=== PATIENT | female | born 1965 | race Caucasian/White ===

== ENCOUNTER 2021-11-20 14:22 | Inpatient (IN) | payer BC ==
[2021-11-20] MEDS ORDERED: METOCLOPRAMIDE 5 MG/ML 2 ML VIAL IVP STA (14:47)
[2021-11-20] MEDS ORDERED: SODIUM CHLORIDE 0.9% 2,000 ML IV STA (14:47)
[2021-11-20] MEDS ORDERED: KETOROLAC 15 MG/ML 1 ML VIAL IVP STA (14:47)
[2021-11-20] MEDS ORDERED: diphenhydrAMINE 50 MG/ML 1 ML VIAL IVP STA (14:47)
[2021-11-20 15:32] LABS: ALT 23 U/L (4-34); AST 30 U/L (14-36); African American GFR (CKD) >90 (>60 ml/min/1.73 sqM); Albumin 5.1 g/dL (3.5-5.0); Alkaline Phosphatase 105 U/L (38-126); Amylase 102 U/L (30-110); Anion Gap 11 mmol/L; Blood Urea Nitrogen 18 mg/dL (7-17); Calcium 10.5 mg/dL (8.4-10.2); Carbon Dioxide 23 mmol/L (22-30); Chloride 100 mmol/L (98-107); Glucose 119 mg/dL (74-99); Lipase 286 U/L (23-300); Non-African American GFR(CKD) 86 (>60 ml/min/1.73 sqM); Potassium 4.1 mmol/L (3.5-5.1); Sodium 134 mmol/L (137-145); Total Bilirubin 1.1 mg/dL (0.2-1.3); Total Protein 8.7 g/dL (6.3-8.2)
[2021-11-20 15:42] LABS: Basophils % (A) 0 %; Eosinophils # (A) 0.1 k/uL (0-0.7); Eosinophils % (A) 0 %; HCT 43.8 % (34.0-46.0); HGB 14.4 gm/dL (11.4-16.0); Lymphocytes # (A) 1.2 k/uL (1.0-4.8); Lymphocytes % (A) 11 %; MCH 29.6 pg (25.0-35.0); MCHC 32.8 g/dL (31.0-37.0); MCV 90.1 fL (80.0-100.0); Mean Platelet Volume 7.9; Monocytes # (A) 0.6 k/uL (0-1.0); Monocytes % (A) 6 %; Neutrophils # (A) 8.6 k/uL (1.3-7.7); Neutrophils % (A) 81 %; Platelet Count 430 k/uL (150-450); RBC 4.86 m/uL (3.80-5.40); RDW 14.1 % (11.5-15.5); WBC 10.6 k/uL (3.8-10.6)
[2021-11-20] MEDS ORDERED: HYDROmorphone 0.5 MG/0.5 ML SYRINGE IVP STA (16:03)
--- NOTE | 2021-11-20 16:04 | CT ---
EXAMINATION TYPE: CT abdomen pelvis w con DATE OF EXAM: 11/20/2021 COMPARISON: None available HISTORY: abdominal pain, distention CT DLP: 828.2 mGycm Automated exposure control for dose reduction was used. TECHNIQUE: Helical acquisition of images was performed from the lung bases through the pelvis. CONTRAST: Performed without Oral Contrast and with IV Contrast, patient injected with 100 mL of Isovue 300. FINDINGS: Previous small and large bowel resection with ileocolic anastomosis in the right side of the abdomen. Unremarkable stomach. Dilated duodenum and jejunal loops measuring up to 3.8 cm with 2 transition po ints identified. The first transition point is seen in the right side of the mid abdomen (image #[id number], series 202) with the second transition point seen more superiorly and medially in the right side o f the abdomen (image 54, series 202). The second transition point demonstrates mild soft tissue thick ening with tethered small bowel and adjacent surgical clip. The inferior aspect of the second/third p arts of the duodenum is also tethered towards the second transition point. This could be due to adhesions however a small bowel lesion cannot be excluded. Please correlate with previous operative report and patient's surgical history. Other segments of mild small bowel wall th ickening, possibly related to peristalsis. Distal to the second transition point, there is complete c ollapse of the small bowel down to the ileocolic anastomosis. No evidence of pneumatosis, free perito tiffanie air or portal venous gas however early bowel ischemia cannot be excluded. Completely collapsed r emainder of the colon. No definite hepatic focal lesion. Previous cholecystectomy. Dilated CBD, possibly related to postchol ecystectomy status, please correlate with bilirubin level. Unremarkable spleen, pancreas, adrenals an d right kidney. Focal cortical defect at the upper pole of the left kidney, likely representing seque la of previous infection/infarct. Unremarkable abdominal aorta. Grossly unremarkable urinary bladder. Previous hysterectomy. No gross adnexal mass. No suspicious lymphadenopathy. Minimal pelvic fluid. U nremarkable lung bases. No aggressive bone lesion. Minimal upper endplate depression of L4, likely ch ronic. Grade 1 anterolisthesis of L5 over S1, likely degenerative. IMPRESSION: Findings are consistent with acute mechanical small bowel obstruction with 2 transition points as joe cribed above. The underlying etiology at the distal transition point could be related to adhesion or surgical clip however small bowel lesion at that location cannot be excluded. Recommend correlation w ith patient's surgical history and previous operative report. No pneumatosis, free peritoneal air or portal venous gas however early bowel ischemia cannot be exclu ded. Recommend surgical consultation. Other incidental findings as detailed above.
[2021-11-20] MEDS ORDERED: PIPERACILLIN-TAZOBACTAM 3.375 GM in SODIUM CHLORIDE 0.9% 100 ML IVPB STA (16:25)
[2021-11-20] MEDS ORDERED: NALOXONE 0.4 MG/ML 1 ML VIAL IV PRN (16:35)
--- NOTE | 2021-11-20 16:35 | ED ---
Abdominal Pain HPI - General Source: patient, EMS, RN notes reviewed Mode of arrival: EMS Limitations: no limitations <Greg Cabrera - Last Filed: 11/20/21 16:32> <Pina Katz - Last Filed: 11/23/21 23:53> - General Chief Complaint: Abdominal Pain Stated Complaint: Abdominal Pain Time Seen by Provider: 11/20/21 14:38 - History of Present Illness Initial Comments: This a 56-year-old female presents emergency Department with chief complaint of abdominal pain, nausea vomiting. Patient states she's had no stool output. Patient states she has severe abdominal pain and distention. She states she can't keep anything down she did see her PCP doctor today who ordered some blood work, x-ray states that she cannot completely doctor today so she came to return as symptoms worsen. Patient states that she has diffuse abdominal pain. She does admit to multiple abdominal surgeries including: Vasectomy appendectomy, partial hysterectomy and colon resection secondary to benign tumor. Patient does not have current surgeon. (Greg Cabrera) - Related Data Allergies Allergy/AdvReac Type Severity Reaction Status Date / Time latex AdvReac Rash/Hives Verified 11/20/21 17:19 Review of Systems ROS Other: All systems not noted in ROS Statement are negative. <Greg Cabrera - Last Filed: 11/20/21 16:32> ROS Other: All systems not noted in ROS Statement are negative. <Pina Katz - Last Filed: 11/23/21 23:53> ROS Statement: Those systems with pertinent positive or pertinent negative responses have been documented in the HPI. Past Medical History Past Medical History: No Reported History History of Any Multi-Drug Resistant Organisms: None Reported Past Surgical History: Appendectomy, Cholecystectomy, Hysterectomy Past Psychological History: No Psychological Hx Reported Smoking Status: Never smoker Past Alcohol Use History: None Reported Past Drug Use History: None Reported <Greg Cabrera - Last Filed: 11/20/21 16:32> General Exam Limitations: no limitations General appearance: alert, in no apparent distress Head exam: Present: atraumatic, normocephalic, normal inspection Eye exam: Present: normal appearance, PERRL, EOMI. Absent: scleral icterus, conjunctival injection, periorbital swelling ENT exam: Present: normal exam, normal oropharynx, mucous membranes moist Neck exam: Present: normal inspection, full ROM. Absent: tenderness, meningismus, lymphadenopathy Respiratory exam: Present: normal lung sounds bilaterally. Absent: respiratory distress, wheezes, rales, rhonchi, stridor Cardiovascular Exam: Present: regular rate, normal rhythm, normal heart sounds. Absent: systolic murmur, diastolic murmur, rubs, gallop, clicks GI/Abdominal exam: Present: soft, distended, tenderness, normal bowel sounds. Absent: guarding, rebound, rigid <Greg Cabrera - Last Filed: 11/20/21 16:32> Course Vital Signs 11/20/21 11/20/21 11/20/21 14:34 17:13 18:16 Temperature 97.3 F L Pulse Rate 97 90 88 Pulse Rate [ Pulse Oximetery ] Respiratory 18 18 18 Rate Blood Pressure 112/74 118/78 122/70 Blood Pressure [Right Arm] O2 Sat by Pulse 100 100 100 Oximetry 11/20/21 11/21/21 11/21/21 20:00 02:00 07:54 Temperature 97.8 F 97.8 F Pulse Rate Pulse Rate [ 89 89 89 Pulse Oximetery ] Respiratory 18 18 18 Rate Blood Pressure Blood Pressure 131/77 119/71 119/71 [Right Arm] O2 Sat by Pulse 98 100 Oximetry 11/21/21 14:00 Temperature 98.3 F Pulse Rate Pulse Rate [ 90 Pulse Oximetery ] Respiratory 16 Rate Blood Pressure Blood Pressure 133/70 [Right Arm] O2 Sat by Pulse 98 Oximetry Medical Decision Making - Lab Data Result diagrams: 11/20/21 15:07 11/20/21 15:07 <Greg Cabrera - Last Filed: 11/20/21 16:32> - Lab Data Result diagrams: 11/22/21 09:11 11/22/21 09:11 <Pina Katz - Last Filed: 11/23/21 23:53> - Medical Decision Making CT shows evidence of mechanical bowel instruction. Patient's case discussed with Dr. Olivera, NG tube was placed, prophylactic antibiotics, IV fluid hydration. (Greg Cabrera) I was available for consultation in the emergency department. The history and physical exam were done by the midlevel provider. I was consulted for this patients care. I reviewed the case with the midlevel provider and based on their presentation of the patient, I agree with the assessment, medical decision making and plan of care as documented. Chart was dictated using [email or web address] dictation software. Attempts were made to correct any dictation errors however some typographical errors may persist. Patient was seen during a national state of emergency due to the Covid-19 pandemic. (Pina Katz) - Lab Data Lab Results 11/20/21 11/20/21 11/20/21 Range/Units 15:07 15:07 15:07 WBC 10.6 (3.8-10.6) k/uL RBC 4.86 (3.80-5.40) m/uL Hgb 14.4 (11.4-16.0) gm/dL Hct 43.8 (34.0-46.0) % MCV 90.1 (80.0-100.0) fL MCH 29.6 (25.0-35.0) pg MCHC 32.8 (31.0-37.0) g/dL RDW 14.1 (11.5-15.5) % Plt Count 430 (150-450) k/uL MPV 7.9 Neutrophils % 81 % Lymphocytes % 11 % Monocytes % 6 % Eosinophils % 0 % Basophils % 0 % Neutrophils # 8.6 H (1.3-7.7) k/uL Lymphocytes # 1.2 (1.0-4.8) k/uL Monocytes # 0.6 (0-1.0) k/uL Eosinophils # 0.1 (0-0.7) k/uL Basophils # 0.0 (0-0.2) k/uL Sodium 134 L (137-145) mmol/L Potassium 4.1 (3.5-5.1) mmol/L Chloride 100 (98-107) mmol/L Carbon Dioxide 23 (22-30) mmol/L Anion Gap 11 mmol/L BUN 18 H (7-17) mg/dL Creatinine 0.77 (0.52-1.04) mg/dL Est GFR (CKD-EPI)AfAm >90 (>60 ml/min/1.73 sqM) Est GFR (CKD-EPI)NonAf 86 (>60 ml/min/1.73 sqM) Glucose 119 H (74-99) mg/dL Plasma Lactic Acid Juan Francisco 1.1 (0.7-2.0) mmol/L Calcium 10.5 H (8.4-10.2) mg/dL Total Bilirubin 1.1 (0.2-1.3) mg/dL AST 30 (14-36) U/L ALT 23 (4-34) U/L Alkaline Phosphatase 105 (38-126) U/L Total Protein 8.7 H (6.3-8.2) g/dL Albumin 5.1 H (3.5-5.0) g/dL Amylase 102 (30-110) U/L Lipase 286 (23-300) U/L Disposition <Greg Cabrera - Last Filed: 11/20/21 16:32> <Pina Katz - Last Filed: 11/23/21 23:53> Clinical Impression: Small bowel obstruction Disposition: ADMITTED IP TO THIS HOSP Condition: Fair
[2021-11-20] MEDS: SODIUM CHLORIDE 0.9% 1,000 ML IV SCH (17:09)
[2021-11-20] MEDS: ONDANSETRON 4 MG/2 ML VIAL IVP PRN ×2 (17:32→23:42)
[2021-11-20 17:35] LABS: Appearance,Urine Clear (Clear); Bilirubin,Urine Negative (Negative); Blood,Urine Negative (Negative); Color,Urine Light Yellow; Glucose,Urine (UA) Negative (Negative); Ketones,Urine 1+ (Negative); Leukocyte Esterase,Urine Negative (Negative); Nitrite,Urine Negative (Negative); PH, Urine 6.5 (5.0-8.0); Protein,Urine Negative (Negative); Specific Gravity,Urine 1.043 (1.001-1.035); Urobilinogen,Urine <2.0 mg/dL (<2.0)
--- NOTE | 2021-11-20 17:51 | XR ---
EXAMINATION TYPE: XR chest 1V confirm line [facility] DATE OF EXAM: 11/20/2021 COMPARISON: NONE HISTORY: Check tube placement TECHNIQUE: Single view FINDINGS: There is nasogastric tube and the tip is overlying the distal esophagus at the gastroesopha geal junction. The lungs are clear. Heart and mediastinum are normal. Diaphragm is normal. IMPRESSION: NG tube appears to be in the distal esophagus and not clearly in the stomach.
[2021-11-20] MEDS: METOCLOPRAMIDE 5 MG/ML 2 ML VIAL IVP PRN (20:31)
[2021-11-20] MEDS: HYDROmorphone 1 MG/ML 1 ML SYRINGE IVP PRN (21:54)
[2021-11-20] MEDS: PIPERACILLIN-TAZOBACTAM 3.375 GM in SODIUM CHLORIDE 0.9% 100 ML IVPB SCH (23:43)
[2021-11-21] MEDS: METOCLOPRAMIDE 5 MG/ML 2 ML VIAL IVP PRN ×2 (02:00→13:09)
[2021-11-21] MEDS: HYDROmorphone 1 MG/ML 1 ML SYRINGE IVP PRN ×6 (02:00→20:05)
[2021-11-21] MEDS: PIPERACILLIN-TAZOBACTAM 3.375 GM in SODIUM CHLORIDE 0.9% 100 ML IVPB SCH ×3 (10:15→23:44)
[2021-11-21] MEDS: PANTOPRAZOLE 40 MG/10 ML VIAL IV SCH (10:15)
[2021-11-21] MEDS: ONDANSETRON 4 MG/2 ML VIAL IVP PRN ×2 (10:15→17:01)
[2021-11-21] MEDS: SODIUM CHLORIDE 0.9% 1,000 ML IV SCH ×3 (11:44→23:23)
--- NOTE | 2021-11-21 15:09 | P.GSHP ---
History of Present Illness H&P Date: 11/21/21 CHIEF COMPLAINT: Abdominal pain HISTORY OF PRESENT ILLNESS: This is a 56-year-old female who presents to the emergency room with complaints of abdominal pain, nausea and vomiting. She reports no bowel movement. She reports that she is having severe pain and abdominal distention. She's reports her pain 10 out of 10. She's had multiple abdominal surgeries which include appendectomy, cholecystectomy, partial hysterectomy and colon resection for benign tumor. She denies any fever chills or sweats. She had NG tube placed in ER for small bowel obstruction. Had 800 mL output noted. The CAT scan had shown evidence of a mechanical small bowel obstruction with to transition points. Patient seen and examined in the ER with Dr. sanchez. PAST MEDICAL HISTORY: none PAST SURGICAL HISTORY: appendectomy, cholecystectomy, partial hysterectomy and colon resection for benign tumor MEDICATIONS: See list. ALLERGIES: See list. SOCIAL HISTORY: No illicit drug use. REVIEW OF SYSTEMS: CONSTITUTIONAL: Denies fever or chills. HEENT: Denies blurred vision, vision changes, or eye pain. Denies hemoptysis CARDIOVASCULAR: Denies chest pain or pressure. RESPIRATORY: No shortness of breath. GASTROINTESTINAL: See HPI for pertinent findings HEMATOLOGIC: Denies bleeding disorders. GENITOURINARY: Denies any blood in urine or increased urinary frequency. SKIN: Denies pruitis. Denies rash. PHYSICAL EXAM: VITAL SIGNS: Reviewed GENERAL: Well-developed in no acute distress. HEENT: No sclera icterus. Extraocular movements grossly intact. Moist buccal mucosa. Head is atraumatic, normocephalic. No nasal drainage. ABDOMEN: Soft. Distended. Tenderness to palpation of the lower abdomen. NEUROLOGIC: Alert and oriented. Cranial nerves II through XII grossly intact. LABORATORY DATA: WBC is 10.6 hemoglobin 14.4 platelets 4:30 Sodium 134 potassium 4.1 creatinine 0.77 Lactic acid 1.1 LFTs normal Lipase 286 IMAGING: Computed tomography scan abdomen and pelvis findings are consistent with acute mechanical small bowel obstruction with 2 transition points as described above. The underlying etiology at the distal transition point could be related to adhesions or surgical clip. However small bowel lesion at that location cannot be excluded. No pneumatosis, free peritoneal air or portal venous gas however early bowel ischemia cannot be excluded. ASSESSMENT: 1. Acute mechanical small bowel obstruction with to transition points possibly due to adhesions. 2. Multiple abdominal surgeries PLAN: -Patient scheduled for exploratory laparotomy with lysis of adhesions today with Dr. sanchez -Continue NG tube for decompression -Keep patient nothing by mouth -Continue IV fluids -Continue pain medication -Dilaudid adjusted to 1 mg IV every 3 hours as needed for pain -Continue antibiotics Physician Saddle Stitch Operator note has been reviewed by physician. Signing provider agrees with the documented findings, assessment, and plan of care. Past Medical History Past Medical History: No Reported History History of Any Multi-Drug Resistant Organisms: None Reported Past Surgical History: Appendectomy, Cholecystectomy, Hysterectomy Past Anesthesia/Blood Transfusion Reactions: No Reported Reaction Past Psychological History: No Psychological Hx Reported Smoking Status: Never smoker Past Alcohol Use History: None Reported Past Drug Use History: None Reported Medications and Allergies Home Medications Medication Instructions Recorded Confirmed Type Dicyclomine [Bentyl] 10 mg PO TID PRN 11/20/21 11/20/21 History LORazepam [Ativan] 1 mg PO HS PRN 11/20/21 11/20/21 History Loratadine [Claritin] 10 mg PO HS 11/20/21 11/20/21 History Ondansetron [Zofran] 4 mg PO Q4H PRN 11/20/21 11/20/21 History Venlafaxine HCl ER [Effexor Xr] 75 mg PO HS 11/20/21 11/20/21 History buPROPion [Wellbutrin] 75 mg PO HS 11/20/21 11/20/21 History Allergies Allergy/AdvReac Type Severity Reaction Status Date / Time latex AdvReac Rash/Hives Verified 11/20/21 17:19 Surgical - Exam Vital Signs Temp Pulse Resp BP Pulse Ox 97.3 F L 97 18 112/74 100 11/20/21 14:34 11/20/21 14:34 11/20/21 14:34 11/20/21 14:34 11/20/21 14:34 Results - Labs 11/20/21 15:07 11/20/21 15:07 Abnormal Lab Results - Last 24 Hours (Table) 11/20/21 11/20/21 11/20/21 Range/Units 15:07 15:07 17:32 Neutrophils # 8.6 H (1.3-7.7) k/uL Sodium 134 L (137-145) mmol/L BUN 18 H (7-17) mg/dL Glucose 119 H (74-99) mg/dL Calcium 10.5 H (8.4-10.2) mg/dL Total Protein 8.7 H (6.3-8.2) g/dL Albumin 5.1 H (3.5-5.0) g/dL Ur Specific [place] 1.043 H (1.001-1.035) Urine Ketones 1+ H (Negative) Diabetes panel 11/20/21 Range/Units 15:07 Sodium 134 L (137-145) mmol/L Potassium 4.1 (3.5-5.1) mmol/L Chloride 100 (98-107) mmol/L Carbon Dioxide 23 (22-30) mmol/L BUN 18 H (7-17) mg/dL Creatinine 0.77 (0.52-1.04) mg/dL Glucose 119 H (74-99) mg/dL Calcium 10.5 H (8.4-10.2) mg/dL AST 30 (14-36) U/L ALT 23 (4-34) U/L Alkaline Phosphatase 105 (38-126) U/L Total Protein 8.7 H (6.3-8.2) g/dL Albumin 5.1 H (3.5-5.0) g/dL Calcium panel 11/20/21 Range/Units 15:07 Calcium 10.5 H (8.4-10.2) mg/dL Albumin 5.1 H (3.5-5.0) g/dL Pituitary panel 11/20/21 Range/Units 15:07 Sodium 134 L (137-145) mmol/L Potassium 4.1 (3.5-5.1) mmol/L Chloride 100 (98-107) mmol/L Carbon Dioxide 23 (22-30) mmol/L BUN 18 H (7-17) mg/dL Creatinine 0.77 (0.52-1.04) mg/dL Glucose 119 H (74-99) mg/dL Calcium 10.5 H (8.4-10.2) mg/dL Adrenal panel 11/20/21 Range/Units 15:07 Sodium 134 L (137-145) mmol/L Potassium 4.1 (3.5-5.1) mmol/L Chloride 100 (98-107) mmol/L Carbon Dioxide 23 (22-30) mmol/L BUN 18 H (7-17) mg/dL Creatinine 0.77 (0.52-1.04) mg/dL Glucose 119 H (74-99) mg/dL Calcium 10.5 H (8.4-10.2) mg/dL Total Bilirubin 1.1 (0.2-1.3) mg/dL AST 30 (14-36) U/L ALT 23 (4-34) U/L Alkaline Phosphatase 105 (38-126) U/L Total Protein 8.7 H (6.3-8.2) g/dL Albumin 5.1 H (3.5-5.0) g/dL
[2021-11-21] MEDS ORDERED: IV FLUID CONTINUATION 1,000 ML IV ONE (16:30)
[2021-11-21] MEDS ORDERED: HEPARIN SODIUM,PORCINE/PF 5,000 UNIT/0.5 ML SYRINGE SQ ONE (16:58)
[2021-11-21] MEDS ORDERED: DEXAMETHASONE SOD PHOSPHATE 4 MG/ML 1 ML VIAL IV ONE (17:02)
[2021-11-21] MEDS ORDERED: GLYCOPYRROLATE 0.2 MG/ML 2 ML VIAL ONE (17:12)
[2021-11-21] MEDS ORDERED: PROPOFOL 10 MG/ML 20 ML VIAL IV ONE (17:12)
[2021-11-21] MEDS ORDERED: fentaNYL (PF) 50 MCG/ML 2 ML AMP ONE (17:12)
[2021-11-21] MEDS ORDERED: diphenhydrAMINE 50 MG/ML 1 ML VIAL ONE (17:12)
[2021-11-21] MEDS ORDERED: SUCCINYLCHOLINE CHLORIDE 100 MG/5 ML SYR IV ONE (17:12)
[2021-11-21] MEDS ORDERED: ROCURONIUM 10 MG/ML (5 ML VIAL) IV ONE (17:12)
[2021-11-21] MEDS ORDERED: LIDOCAINE 1% INJ 10MG/ML (20 ML MDV) ONE (17:12)
[2021-11-21] MEDS ORDERED: MIDAZOLAM 2 MG/2 ML VIAL ONE (17:12)
[2021-11-21] MEDS ORDERED: NEOSTIGMINE 1 MG/ML 10 ML VIAL ONE (17:12)
[2021-11-21] MEDS ORDERED: HYDROmorphone (PF) 1 MG/ML ONE (17:12)
[2021-11-21] MEDS ORDERED: LACTATED RINGERS 1,000 ML IV ONE ×2 (17:54→18:26)
[2021-11-21] MEDS ORDERED: ONDANSETRON 4 MG/2 ML VIAL IVP PRN (18:26)
[2021-11-21] MEDS ORDERED: METOCLOPRAMIDE 5 MG/ML 2 ML VIAL IVP PRN (18:26)
[2021-11-21] MEDS ORDERED: ACETAMINOPHEN TAB 325 MG TAB PO PRN (18:26)
[2021-11-21] MEDS ORDERED: NALOXONE 0.4 MG/ML 1 ML VIAL IV PRN (18:26)
[2021-11-21] MEDS: DOCUSATE 100 MG CAP PO SCH (21:52)
[2021-11-21] MEDS: KETOROLAC 30 MG/ML 1 ML VIAL IVP SCH (23:44)
[2021-11-22] MEDS: HYDROmorphone 1 MG/ML 1 ML SYRINGE IVP PRN ×3 (00:17→20:14)
[2021-11-22] MEDS: KETOROLAC 30 MG/ML 1 ML VIAL IVP SCH ×3 (05:32→17:06)
--- NOTE | 2021-11-22 08:10 | P.OP ---
Date of Procedure: 11/21/21 Preoperative Diagnosis: Small bowel obstruction Postoperative Diagnosis: Small bowel obstruction secondary to internal hernia Procedure(s) Performed: Ileocolectomy Anesthesia: ARCELIA Surgeon: Bernard Olivera Estimated Blood Loss (ml): 25 Pathology: other (Ileocolectomy) Condition: stable Disposition: floor Description of Procedure: The patient's placed on the operative table in the supine position. She received general anesthesia. Her abdomen was prepped and draped in sterile fashion. Through a midline skin incision the peritoneal cavity was entered. There was some ascites in the pleural cavity. The small bowel appeared grossly dilated. Small bowel was run from ligament of Treitz. 2 warts the colon. The patient had a previous right collecting. There appeared to be an internal hernia at the ileocolonic anastomosis. There was a window in the mesentery there was a torsion of the anastomosis. At this point it was decided to redo the anastomosis. The small bowel was transected proximally and the colon was transected distally to the anastomosis. The BENITO stapler used to transect the bowel. The mesentery the bowel was then divided using the Enseal device. A [id number] functional end-to-end staple anastomosis created using BENITO and TA stapler. Care was taken to not have any torsion of the small bowel mesentery at the anastomosis. A 3-0 GI silk suture was uses crutches. The abdomen was irrigated tubing seen. The fascia was then closed with looped #1. Suture and skin was closed ayanna. Patient top she will was sent to recovery room in stable condition.
[2021-11-22 09:38] LABS: Basophils % (A) 0 %; Eosinophils % (A) 0 %; HCT 37.5 % (34.0-46.0); HGB 11.9 gm/dL (11.4-16.0); Lymphocytes # (A) 1.3 k/uL (1.0-4.8); Lymphocytes % (A) 13 %; MCH 29.4 pg (25.0-35.0); MCHC 31.7 g/dL (31.0-37.0); MCV 92.7 fL (80.0-100.0); Mean Platelet Volume 7.8; Monocytes # (A) 0.6 k/uL (0-1.0); Monocytes % (A) 6 %; Neutrophils # (A) 8.2 k/uL (1.3-7.7); Neutrophils % (A) 80 %; Platelet Count 341 k/uL (150-450); RBC 4.04 m/uL (3.80-5.40); RDW 14.1 % (11.5-15.5); WBC 10.2 k/uL (3.8-10.6)
[2021-11-22] MEDS: PIPERACILLIN-TAZOBACTAM 3.375 GM in SODIUM CHLORIDE 0.9% 100 ML IVPB SCH ×2 (09:50→16:49)
[2021-11-22] MEDS: PANTOPRAZOLE 40 MG/10 ML VIAL IV SCH (09:50)
[2021-11-22] MEDS: DOCUSATE 100 MG CAP PO SCH ×2 (09:50→20:19)
[2021-11-22 09:51] LABS: African American GFR (CKD) 87 (>60 ml/min/1.73 sqM); Anion Gap 5 mmol/L; Blood Urea Nitrogen 17 mg/dL (7-17); Calcium 8.3 mg/dL (8.4-10.2); Carbon Dioxide 23 mmol/L (22-30); Chloride 110 mmol/L (98-107); Glucose 105 mg/dL (74-99); Non-African American GFR(CKD) 76 (>60 ml/min/1.73 sqM); Potassium 3.8 mmol/L (3.5-5.1); Sodium 138 mmol/L (137-145)
[2021-11-22] MEDS: ENOXAPARIN 40 MG/0.4 ML SYRINGE SQ SCH (09:51)
[2021-11-22] MEDS ORDERED: BENZOCAINE SPRAY 1 CAN MUCOUS MEM PRN (11:15)
[2021-11-22] MEDS: SODIUM CHLORIDE 0.9% 1,000 ML IV SCH (11:35)
--- NOTE | 2021-11-22 13:13 | P.PN ---
Subjective Progress Note Date: 11/22/21 CHIEF COMPLAINT: Small bowel obstruction HISTORY OF PRESENT ILLNESS: Patient is postop day #1 status post Ileocolectomy for small bowel obstruction secondary to internal hernia. Patient reports her pain is controlled. She does feel dry and thirsty. Fluids have only been at 75 mL an hour. Afebrile. She is tachycardic. NG tube is 650 ML output. Denies any bowel movement or flatus. Denies any nausea. Urine output adequate. Golden catheter discontinued this morning. PHYSICAL EXAM: VITAL SIGNS: Reviewed. GENERAL: Well-developed in no acute distress. HEENT: No sclera icterus. Extraocular movements grossly intact. Moist buccal mucosa. Head is atraumatic, normocephalic. ABDOMEN: Soft. Nondistended. Incisional dressing clean dry and intact. Abdominal binder in place. NEUROLOGIC: Alert and oriented. Cranial nerves II through XII grossly intact. ASSESSMENT: 1. Small bowel obstruction secondary to internal hernia status post ileocolectomy PLAN: -Increase IV fluids to lactated Ringer's at 125 mL per hour -Add Hurricaine spray for NG tube and throat irritation -Continue pain medication as needed -Continue NG tube decompression -Keep patient nothing by mouth except for ice chips -Add incentive spirometer -DVT prophylaxis Lovenox and GI prophylaxis Protonix Physician Nurse Examiner note has been reviewed by physician. Signing provider agrees with the documented findings, assessment, and plan of care. Objective - Vital Signs Vital signs: Vital Signs Temp 98.9 F 11/22/21 12:06 Pulse 110 H 11/22/21 12:06 Resp 22 11/22/21 12:06 BP 115/72 11/22/21 12:06 Pulse Ox 95 11/22/21 12:06 Intake & Output 11/21/21 11/22/21 11/22/21 18:59 06:59 18:59 Intake Total 1200 100 Output Total 400 750 650 Balance 800 -650 -650 Weight 74.843 kg 74.843 kg Intake: IV 1200 100 Output: Gastric Drainage 50 650 Urine 300 700 Estimated Blood Loss 100 Other: Voiding Method Indwelling Catheter - Labs CBC & Chem 7: 11/22/21 09:11 11/22/21 09:11 Labs: Abnormal Lab Results - Last 24 Hours (Table) 11/22/21 11/22/21 Range/Units 09:11 09:11 Neutrophils # 8.2 H (1.3-7.7) k/uL Chloride 110 H (98-107) mmol/L Glucose 105 H (74-99) mg/dL Calcium 8.3 L (8.4-10.2) mg/dL
--- NOTE | 2021-11-22 15:23 | P.CONS ---
History of Present Illness - Reason for Consult Hyponatremia - History of Present Illness Patient is a pleasant 56-year-old female came in with the small bowel obstructions secondary to internal hernia patient underwent the laparotomy patient is status post posterior colectomy for small bowel obstruction. Patient underwent end-to-end anastomosis. Patient pain is much better controlled at this time patient didn't pass gas yet does have bowel sounds. Patient has hyponatremia which improved at this time. Patient was bit tachycardic at heart rate of on 10 patient doesn't have any fever chills patient doesn't have any significant leukocytosis. Patient is presently on lactated Ringer's. REVIEW OF SYSTEMS: CONSTITUTIONAL: No fever, no malaise, no fatigue. HEENT: No recent visual problems or hearing problems. Denied any sore throat. CARDIOVASCULAR: No chest pain, orthopnea, PND, no palpitations, no syncope. PULMONARY: No shortness of breath, no cough, no hemoptysis. GASTROINTESTINAL: No diarrhea, no nausea, no vomiting, no abdominal pain. NEUROLOGICAL: No headaches, no weakness, no numbness. HEMATOLOGICAL: Denies any bleeding or petechiae. GENITOURINARY: Denies any burning micturition, frequency, or urgency. MUSCULOSKELETAL/RHEUMATOLOGICAL: Denies any joint pain, swelling, or any muscle pain. ENDOCRINE: Denies any polyuria or polydipsia. The rest of the 14-point review of systems is negative. PHYSICAL EXAMINATION: GENERAL: The patient is alert and oriented x3, not in any acute distress. Well developed, well nourished. HEENT: Pupils are round and equally reacting to light. EOMI. No scleral icterus. No conjunctival pallor. Normocephalic, atraumatic. No pharyngeal erythema. No thyromegaly. CARDIOVASCULAR: S1 and S2 present. No murmurs, rubs, or gallops. PULMONARY: Chest is clear to auscultation, no wheezing or crackles. ABDOMEN: Abdominal binder in place does have bowel sounds MUSCULOSKELETAL: No joint swelling or deformity. EXTREMITIES: No cyanosis, clubbing, or pedal edema. NEUROLOGICAL: Gross neurological examination did not reveal any focal deficits. SKIN: No rashes. Assessment and plan -Hyponatremia have one week hyponatremia which improved with IV fluids -Tachycardia secondary to pain which is improving at this time continue pain management. -Small bowel obstruction: Status post ileocolectomy -Depression: Patient was resumed on her home medications DVT prophylaxis: On Lovenox Past Medical History Past Medical History: No Reported History History of Any Multi-Drug Resistant Organisms: None Reported Past Surgical History: Appendectomy, Cholecystectomy, Hysterectomy Past Anesthesia/Blood Transfusion Reactions: No Reported Reaction Past Psychological History: No Psychological Hx Reported Smoking Status: Never smoker Past Alcohol Use History: None Reported Past Drug Use History: None Reported Medications and Allergies Home Medications Medication Instructions Recorded Confirmed Type Dicyclomine [Bentyl] 10 mg PO TID PRN 11/20/21 11/20/21 History LORazepam [Ativan] 1 mg PO HS PRN 11/20/21 11/20/21 History Loratadine [Claritin] 10 mg PO HS 11/20/21 11/20/21 History Ondansetron [Zofran] 4 mg PO Q4H PRN 11/20/21 11/20/21 History Venlafaxine HCl ER [Effexor Xr] 75 mg PO HS 11/20/21 11/20/21 History buPROPion [Wellbutrin] 75 mg PO HS 11/20/21 11/20/21 History Allergies Allergy/AdvReac Type Severity Reaction Status Date / Time latex AdvReac Rash/Hives Verified 11/20/21 17:19 Physical Exam Vitals: Vital Signs Temp Pulse Resp BP Pulse Ox 11/22/21 12:06 98.9 F 110 H 22 115/72 95 11/22/21 05:33 98.5 F 125 H 18 114/74 97 11/21/21 21:00 105 H 124/83 96 11/21/21 20:45 101 H 124/80 95 11/21/21 20:30 108 H 124/82 97 11/21/21 20:04 105 H 16 11/21/21 20:00 97.5 F L 102 H 16 142/82 95 11/21/21 19:25 92 16 132/72 94 L 11/21/21 19:10 97 16 139/73 93 L 11/21/21 18:55 98 16 151/75 94 L 11/21/21 18:40 97 F L 70 16 127/74 98 11/21/21 16:51 97 F L 84 140/84 98 Intake and Output 11/22/21 11/22/21 11/22/21 06:59 14:59 22:59 Output Total 600 650 Balance -600 -650 Output: Gastric Drainage 650 Urine 600 Results CBC & Chem 7: 11/22/21 09:11 11/22/21 09:11 Labs: Abnormal Lab Results - Last 24 Hours (Table) 11/22/21 11/22/21 Range/Units 09:11 09:11 Neutrophils # 8.2 H (1.3-7.7) k/uL Chloride 110 H (98-107) mmol/L Glucose 105 H (74-99) mg/dL Calcium 8.3 L (8.4-10.2) mg/dL
[2021-11-22] MEDS: LACTATED RINGERS 1,000 ML IV SCH ×2 (16:22→22:51)
[2021-11-22] MEDS: buPROPion 75 MG TAB PO SCH (20:19)
[2021-11-22] MEDS: LORATADINE 10 MG TAB PO SCH (20:19)
[2021-11-22] MEDS: VENLAFAXINE HCL ER 75 MG CAP PO SCH (20:19)
[2021-11-23] MEDS: SODIUM CHLORIDE 0.9% 1,000 ML IV SCH ×4 (00:12→23:16)
[2021-11-23] MEDS: KETOROLAC 30 MG/ML 1 ML VIAL IVP SCH ×4 (00:21→17:08)
[2021-11-23] MEDS: PIPERACILLIN-TAZOBACTAM 3.375 GM in SODIUM CHLORIDE 0.9% 100 ML IVPB SCH ×4 (00:27→23:41)
[2021-11-23] MEDS: HYDROmorphone 1 MG/ML 1 ML SYRINGE IVP PRN (04:48)
[2021-11-23] MEDS: LACTATED RINGERS 1,000 ML IV SCH ×3 (04:49→19:29)
[2021-11-23] MEDS: ENOXAPARIN 40 MG/0.4 ML SYRINGE SQ SCH (08:07)
[2021-11-23] MEDS: DOCUSATE 100 MG CAP PO SCH ×2 (08:07→20:39)
[2021-11-23] MEDS: PANTOPRAZOLE 40 MG/10 ML VIAL IV SCH (08:07)
--- NOTE | 2021-11-23 14:34 | P.PN ---
Subjective Progress Note Date: 11/23/21 Patient is a pleasant 56-year-old female came in with the small bowel obstructions secondary to internal hernia patient underwent the laparotomy patient is status post posterior colectomy for small bowel obstruction. Patient underwent end-to-end anastomosis. Patient pain is much better controlled at thi s time patient didn't pass gas yet does have bowel sounds. Patient has hyponatremia which improved at this time. Patient was bit tachycardic at heart rate of on 10 patient doesn't have any fever chills patient doesn't have any significant leukocytosis. Patient is presently on lactated Ringer's. 11/23/2021 Patient is evaluated today resting in bed. She is postop day #2 posterior colectomy for small bowel obstruction with end-to-end anastomosis. Abdominal pain is much improved, passing gas had a bowel movement today. Labs are stable, hyponatremia has resolved. Pt is afebrile, heart rate 93 with periods of tachycardia up to 104, blood pressure 129/82, 98% room air. Patient continues on IV Zosyn, IV fluids. Diet was advanced today to full liquid by primary. If tolerating diet patient hopes to be discharged early tomorrow morning. Review of Systems Constitutional: Denied any fatigue denied any fever. Cardio vascular: denied any chest pain, palpitations Gastrointestinal: denied any nausea, vomiting, diarrhea, reports bloating, passing gas had BM Pulmonary: Denied any shortness of breath cough Neurologic denied any new focal deficits All inpatient medications were reviewed and appropriate changes in these medications as dictated in the interval history and assessment and plan. PHYSICAL EXAMINATION: GENERAL: The patient is alert and oriented x3, not in any acute distress. Well developed, well nourished. HEENT: Pupils are round and equally reacting to light. EOMI. No scleral icterus. No conjunctival pallor. Normocephalic, atraumatic. No pharyngeal erythema. No thyromegaly. CARDIOVASCULAR: S1 and S2 present. No murmurs, rubs, or gallops. PULMONARY: Chest is clear to auscultation, no wheezing or crackles. ABDOMEN: Abdominal binder in place does have bowel sounds in all 4 quadrants, nontender MUSCULOSKELETAL: No joint swelling or deformity. EXTREMITIES: No cyanosis, clubbing, or pedal edema. NEUROLOGICAL: Gross neurological examination did not reveal any focal deficits. SKIN: No rashes. Assessment and plan -Hyponatremia, resolved with IV fluids -Tachycardia secondary to pain which is improving at this time continue pain management. -Small bowel obstruction: Status post ileocolectomy advanced to full liquid diet today by primary -Depression: Patient was resumed on her home medications DVT prophylaxis: On Lovenox GI prophylaxis: Protonix Full Code Plan Full liquid diet per primary Monitor heart rate Continue supportive care Encourage ambulation, IS Repeat BMP in AM Thank you kindly for this consultation Objective - Vital Signs Vital signs: Vital Signs Temp 98.1 F 11/23/21 11:37 Pulse 93 11/23/21 11:37 Resp 18 11/23/21 11:37 BP 129/82 11/23/21 11:37 Pulse Ox 98 11/23/21 11:37 Intake & Output 11/22/21 11/23/21 11/23/21 18:59 06:59 18:59 Intake Total 100 Output Total 650 Balance -650 100 Intake: Oral 100 Output: Gastric Drainage 650 Other: Voiding Method Indwelling Catheter Toilet # Voids 2 1 - Labs CBC & Chem 7: 11/22/21 09:11 11/22/21 09:11 Assessment and Plan Time with Patient: Less than 30
--- NOTE | 2021-11-23 15:16 | P.PN ---
Subjective Progress Note Date: 11/23/21 CHIEF COMPLAINT: Small bowel obstruction HISTORY OF PRESENT ILLNESS: Patient is postop day #2 status post Ileocolectomy for small bowel obstruction secondary to internal hernia. Patient reports feeling better today. She has been having bowel movements and flatus. Denies any nausea or vomiting. Afebrile. Mild tachycardia heart rate 101 WBC is 10.2. Patient started on clear liquid diet this morning. PHYSICAL EXAM: VITAL SIGNS: Reviewed. GENERAL: Well-developed in no acute distress. HEENT: No sclera icterus. Extraocular movements grossly intact. Moist buccal mucosa. Head is atraumatic, normocephalic. ABDOMEN: Soft. Nondistended. Incisional dressing clean dry and intact. Abdominal binder in place. NEUROLOGIC: Alert and oriented. Cranial nerves II through XII grossly intact. ASSESSMENT: 1. Small bowel obstruction secondary to internal hernia status post ileocolectomy PLAN: -Advance diet to full liquids -Continue pain medication as needed -Encourage patient to use incentive spirometer -Encourage patient to ambulate -Anticipate discharge home tomorrow -DVT prophylaxis Lovenox and GI prophylaxis Protonix Physician Date Night Caregiver note has been reviewed by physician. Signing provider agrees with the documented findings, assessment, and plan of care. Objective - Vital Signs Vital signs: Vital Signs Temp 98.1 F 11/23/21 11:37 Pulse 93 11/23/21 11:37 Resp 18 11/23/21 11:37 BP 129/82 11/23/21 11:37 Pulse Ox 98 11/23/21 11:37 Intake & Output 11/22/21 11/23/21 11/23/21 18:59 06:59 18:59 Intake Total 100 Output Total 650 Balance -650 100 Intake: Oral 100 Output: Gastric Drainage 650 Other: Voiding Method Indwelling Catheter Toilet # Voids 2 1 - Labs CBC & Chem 7: 11/22/21 09:11 11/22/21 09:11
[2021-11-23] MEDS: VENLAFAXINE HCL ER 75 MG CAP PO SCH (20:39)
[2021-11-23] MEDS: HYDROcodone/APAP 5-325MG 1 EACH TAB PO PRN (20:39)
[2021-11-23] MEDS: LORATADINE 10 MG TAB PO SCH (20:39)
[2021-11-23] MEDS: buPROPion 75 MG TAB PO SCH (20:39)
[2021-11-23 22:08] VITALS: RESP 20
[2021-11-24] MEDS: LACTATED RINGERS 1,000 ML IV SCH (03:06)
[2021-11-24] MEDS: HYDROcodone/APAP 5-325MG 1 EACH TAB PO PRN (04:24)
[2021-11-24 04:48] VITALS: BP 131/84; PULSE 91; TEMP 97.2
[2021-11-24 09:16] LABS: African American GFR (CKD) 117.3 (60.0-200.0); Anion Gap 10.6 mmol/L (10.00-18.00); BUN/Creat Ratio 24.5 Ratio (12.00-20.00); Blood Urea Nitrogen 14.7 mg/dL (9.0-27.0); Calcium 8.2 mg/dL (8.7-10.3); Carbon Dioxide 22.4 mmol/L (20.0-27.5); Non-African American GFR(CKD) 101.2 (60.0-200.0); Potassium 3.5 mmol/L (3.5-5.5)
[2021-11-24] MEDS ORDERED: Potassium Replacement Protocol 1 EACH MISC MISCELLANE PRN (09:24)
[2021-11-24] MEDS ORDERED: POTASSIUM CHLORIDE ER 20 MEQ TAB.ER PO ONE (09:24)
[2021-11-24] MEDS: DOCUSATE 100 MG CAP PO SCH (09:46)
[2021-11-24] MEDS: ENOXAPARIN 40 MG/0.4 ML SYRINGE SQ SCH (09:46)
[2021-11-24] MEDS: PIPERACILLIN-TAZOBACTAM 3.375 GM in SODIUM CHLORIDE 0.9% 100 ML IVPB SCH (09:46)
[2021-11-24] MEDS: PANTOPRAZOLE 40 MG/10 ML VIAL IV SCH (09:46)
[2021-11-24] MEDS: SODIUM CHLORIDE 0.9% 1,000 ML IV SCH (09:47)
--- NOTE | 2021-11-24 10:18 | P.PN ---
Subjective Progress Note Date: 11/24/21 Patient is a pleasant 56-year-old female came in with the small bowel obstructions secondary to internal hernia patient underwent the laparotomy patient is status post posterior colectomy for small bowel obstruction. Patient underwent end-to-end anastomosis. Patient pain is much better controlled at thi s time patient didn't pass gas yet does have bowel sounds. Patient has hyponatremia which improved at this time. Patient was bit tachycardic at heart rate of on 10 patient doesn't have any fever chills patient doesn't have any significant leukocytosis. Patient is presently on lactated Ringer's. 11/23/2021 Patient is evaluated today resting in bed. She is postop day #2 posterior colectomy for small bowel obstruction with end-to-end anastomosis. Abdominal pain is much improved, passing gas had a bowel movement today. Labs are stable, hyponatremia has resolved. Pt is afebrile, heart rate 93 with periods of tachycardia up to 104, blood pressure 129/82, 98% room air. Patient continues on IV Zosyn, IV fluids. Diet was advanced today to full liquid by primary. If tolerating diet patient hopes to be discharged early tomorrow morning. 11/24/2021 Patient evaluated this AM resting in bed with family at the bedside Post operative day #3. Still with some bloating, however passing some gas and have BMs. Urinating without difficulty. No acute events over night. No chest pain, no cough, no shortness of breath. Denies nausea, vomiting. Positive bowel sounds, abdominal binder in place. Cleared by surgery for discharge and cleared from medical as well. Metabolic panel unremarkable, potassium on the lower side at 3.5, did receive oral supplementation and recommend repeat in 2-3 days. Pt af ebrile, heart rate 91, blood pressure 131/84, on room air. Review of Systems Constitutional: Denied any fatigue denied any fever. Cardio vascular: denied any chest pain, palpitations Gastrointestinal: denied any nausea, vomiting, diarrhea, reports bloating, passing gas had BM Pulmonary: Denied any shortness of breath cough Neurologic denied any new focal deficits All inpatient medications were reviewed and appropriate changes in these medications as dictated in the interval history and assessment and plan. PHYSICAL EXAMINATION: GENERAL: The patient is alert and oriented x3, not in any acute distress. Well developed, well nourished. HEENT: Pupils are round and equally reacting to light. EOMI. No scleral icterus. No conjunctival pallor. Normocephalic, atraumatic. No pharyngeal erythema. No thyromegaly. CARDIOVASCULAR: S1 and S2 present. No murmurs, rubs, or gallops. PULMONARY: Chest is clear to auscultation, no wheezing or crackles. ABDOMEN: Abdominal binder in place does have bowel sounds in all 4 quadrants, nontender MUSCULOSKELETAL: No joint swelling or deformity. EXTREMITIES: No cyanosis, clubbing, or pedal edema. NEUROLOGICAL: Gross neurological examination did not reveal any focal deficits. SKIN: No rashes. Assessment and plan -Hyponatremia, resolved with IV fluids -Tachycardia secondary to pain which has improved -Small bowel obstruction: Status post ileocolectomy POD Day #3, cleared by surgery today for DC -Depression: Patient was resumed on her home medications DVT prophylaxis: On Lovenox GI prophylaxis: Protonix Full Code Plan One time dose oral potassium replacement today Continue to ambulate, increase activity and use IS at home Follow up with Primary care Follow up with surgical Repeat labs in 2-3 days Thank you kindly for this consultation. Objective - Vital Signs Vital signs: Vital Signs Temp 97.2 F L 11/24/21 04:40 Pulse 91 11/24/21 04:40 Resp 20 11/24/21 04:40 BP 131/84 11/24/21 04:40 Pulse Ox 95 11/24/21 04:40 Intake & Output 11/23/21 11/24/21 11/24/21 18:59 06:59 18:59 Intake Total 100 Balance 100 Intake: Oral 100 Other: Voiding Method Toilet Toilet Toilet # Voids 2 1 # Bowel Movements 2 - Labs CBC & Chem 7: 11/22/21 09:11 11/24/21 05:44 Labs: Abnormal Lab Results - Last 24 Hours (Table) 11/24/21 Range/Units 05:44 BUN/Creatinine Ratio 24.50 H (12.00-20.00) Ratio Calcium 8.2 L (8.7-10.3) mg/dL Assessment and Plan Time with Patient: Less than 30
--- NOTE | 2021-11-24 10:34 | P.DS ---
Providers Date of admission: 11/20/21 16:42 Expected date of discharge: 11/24/21 Attending physician: Bernard Olivera Consults: 11/21/21 18:26 Consult Physician Routine Consulting Provider: Racheal Boles Consult Reason/Comments: Medical management Do you want consulting provider notified?: Yes Primary care physician: Physician Nonstaff Hospital Course: Discharge diagnosis 1. Small bowel obstruction secondary to internal hernia status post ileocolectomy Hospital course his is a 56-year-old female who presents to the emergency room with complaints of abdominal pain, nausea and vomiting. She reports no bowel movement. She reports that she is having severe pain and abdominal distention. She's reports her pain 10 out of 10. She's had multiple abdominal surgeries which include appendectomy, cholecystectomy, partial hysterectomy and colon resection for benign tumor. She denies any fever chills or sweats. She had NG tube placed in ER for small bowel obstruction. Had 800 mL output noted. The CAT scan had shown evidence of a mechanical small bowel obstruction with 2 transition points. Patient is status post ileocolectomy for small bowel obstruction secondary to internal hernia. Patient tolerated surgery well. Her pain is controlled. She is tolerating diet. She has been up and ambulating. She is afebrile. She is having bowel movements. Incision dressing is clean dry and intact. She is stable for discharge. Please refer to chart for any further details. Physician Melter Caster note has been reviewed by physician. Signing provider agrees with the documented findings, assessment, and plan of care. Patient Condition at Discharge: Stable Plan - Discharge Summary New Discharge Prescriptions: New Ibuprofen [Motrin] 600 mg PO Q8HR PRN #30 tab PRN Reason: Pain oxyCODONE HCL [OxyIR] 5 mg PO Q6H PRN 3 Days #12 tab PRN Reason: Pain Acetaminophen Tab [Tylenol Tab] 650 mg PO Q4H PRN #30 tablet PRN Reason: Pain Continue buPROPion [Wellbutrin] 75 mg PO HS Ondansetron [Zofran] 4 mg PO Q4H PRN PRN Reason: Nausea Loratadine [Claritin] 10 mg PO HS Venlafaxine HCl ER [Effexor XR] 75 mg PO HS LORazepam [Ativan] 1 mg PO HS PRN PRN Reason: Anxiety No Action Dicyclomine [Bentyl] 10 mg PO TID PRN PRN Reason: Gi Upset Discharge Medication List Dicyclomine [Bentyl] 10 mg PO TID PRN 11/20/21 [History] LORazepam [Ativan] 1 mg PO HS PRN 11/20/21 [History] Loratadine [Claritin] 10 mg PO HS 11/20/21 [History] Ondansetron [Zofran] 4 mg PO Q4H PRN 11/20/21 [History] Venlafaxine HCl ER [Effexor XR] 75 mg PO HS 11/20/21 [History] buPROPion [Wellbutrin] 75 mg PO HS 11/20/21 [History] Acetaminophen Tab [Tylenol Tab] 650 mg PO Q4H PRN #30 tablet 11/24/21 [Rx] Ibuprofen [Motrin] 600 mg PO Q8HR PRN #30 tab 11/24/21 [Rx] oxyCODONE HCL [OxyIR] 5 mg PO Q6H PRN 3 Days #12 tab 11/24/21 [Rx] Follow up Appointment(s)/Referral(s): Nonstaff,Physician [Primary Care Provider] - 1-2 days Bernard Olivera MD [STAFF PHYSICIAN] - 11/30/21 2:45 pm Ambulatory/Diagnostic Orders: Basic Metabolic Panel [LAB.AMB] Time Frame: 3 Days, Location: None Selected Patient Instructions/Handouts: Acetaminophen (By mouth), Ibuprofen (By mouth), Oxycodone/Acetaminophen (By mouth) Activity/Diet/Wound Care/Special Instructions: No driving while taking OxyIR No lifting over 10 pounds You may shower. No soaking or tub baths for 2 weeks Very light activity until you are reevaluated at your follow up appointment with your surgeon Continue full liquid diet and then advance as tolerated Hold on taking Bentyl until seen by surgeon Discharge Disposition: HOME SELF-CARE
== END 2021-11-24 11:10 | disposition home or self-care (01) | DRG 330 ==
LOC: EC 14:22 → 5NMEDONC 16:42
PROVIDERS: ADMIT Surgery; ATTEND Surgery
PROC: 0DBB0ZZ Excision of Ileum, Open Approach (ICD-10-PCS; 2021-11-21)
PROC: 0DBK0ZZ Excision of Ascending Colon, Open Approach (ICD-10-PCS; principal; 2021-11-21 09:55)
DX: K46.0 Unspecified abdominal hernia with obstruction, without gangrene (principal); E87.1 Hypo-osmolality and hyponatremia; R10.9 Unspecified abdominal pain; F32.A Depression, unspecified; Z90.711 Acquired absence of uterus with remaining cervical stump; R00.0 Tachycardia, unspecified
CPT/HCPCS: 36415; 74177; 80048; 80053; 81003; 82150; 83605; 83690; 85025; 88307; 96374; 96375; 96376; 99285

== ENCOUNTER 2022-07-26 09:13 | Day surgery (SDC) | payer BC ==
[2022-07-24 11:50] VITALS: BMI 25.8
[~2022-07-26 09:13] MED LIST: LACTATED RINGERS 1,000 ML IV SCH
[2022-07-26 09:44] VITALS: TEMP 98.3
[2022-07-26] MEDS ORDERED: MIDAZOLAM 2 MG/2 ML VIAL IVP ONE (10:23)
[2022-07-26] MEDS ORDERED: PROPOFOL 10 MG/ML 20 ML VIAL IV ONE (10:48)
[2022-07-26] MEDS ORDERED: LIDOCAINE 2% INJ 20 MG/ML (2 ML VIAL) ONE (10:48)
--- NOTE | 2022-07-26 10:48 | P.GSHP ---
History of Present Illness H&P Date: 07/26/22 Chief Complaint: History of colon polyp Is a 49-year-old female who was previously history of colon polyps and colon resection. Patient presents today for colonoscopy. Past Medical History Past Medical History: No Reported History Additional Past Medical History / Comment(s): "SOB going up stairs". "A lot of heartburn since had gallbladder out." History of Any Multi-Drug Resistant Organisms: None Reported Past Surgical History: Appendectomy, Cholecystectomy, Hysterectomy Additional Past Surgical History / Comment(s): Colonoscopy with polypectomy "resulting in twisted bowel and bowel surgery 12/2021". Past Anesthesia/Blood Transfusion Reactions: No Reported Reaction Past Psychological History: Anxiety Smoking Status: Former smoker Past Alcohol Use History: Rare Additional Past Alcohol Use History / Comment(s): Quit smoking 3 yrs ago. Past Drug Use History: None Reported - Past Family History Daughter(s) Family Medical History: Cancer Sister(s) Family Medical History: Deep Vein Thrombosis (DVT) Medications and Allergies Home Medications Medication Instructions Recorded Confirmed Type LORazepam [Ativan] 0.5 mg PO DIRECTED PRN 11/20/21 07/26/22 History Loratadine [Claritin] 10 mg PO HS 11/20/21 07/26/22 History Venlafaxine HCl ER [Effexor XR] 75 mg PO HS 11/20/21 07/26/22 History buPROPion [Wellbutrin] 75 mg PO HS 11/20/21 07/26/22 History Aspirin/Acetaminophen/Caffeine 1 each PO DIRECTED 07/24/22 07/26/22 History [Excedrin Migraine Caplet] Esomeprazole Magnesium [NexIUM 20 mg PO DAILY 07/24/22 07/26/22 History 24Hr] Allergies Allergy/AdvReac Type Severity Reaction Status Date / Time latex AdvReac Rash/Hives Verified 07/26/22 09:35 Surgical - Exam Vital Signs Temp Pulse Resp BP Pulse Ox 98.3 F 108 H 18 140/88 99 07/26/22 09:41 07/26/22 09:41 07/26/22 09:41 07/26/22 09:41 07/26/22 09:41 - General well developed, well nourished, no distress - Eyes PERRL - ENT normal pinna - Neck no masses - Respiratory normal expansion - Cardiovascular Rhythm: regular - Abdomen Abdomen: soft, non tender Assessment and Plan Assessment: History of colon polyp. We'll perform colonoscopy
--- NOTE | 2022-07-26 11:03 | P.OP ---
Date of Procedure: 07/26/22 Preoperative Diagnosis: History of colon polyps Postoperative Diagnosis: Normal colonoscopy status post right colectomy Procedure(s) Performed: Colonoscopy Anesthesia: MAC Surgeon: Bernard Olivera Pathology: none sent Condition: stable Description of Procedure: The patient's placed on the endoscopy table in the lateral position. She received IV sedation. Digital rectal exam was performed which revealed some minimal internal hemorrhoids flexible colonoscope was then placed patient anus and passed throughout the entire colon. A shunt had a previous right colectomy. The ileocolonic anastomosis was visualized. The scope was entered into the ileum for a short period there is no obstruction of the ileocolonic anastomosis. The clot scope was then brought back the remaining transverse colon descending colon and sigmoid colon appeared normal. The scope was then brought back the rectum appeared normal. Scope withdrawn for patient.
[2022-07-26 11:09] VITALS: BP 102/64
[2022-07-26 11:31] VITALS: PULSE 90; RESP 20
== END 2022-07-26 11:43 | disposition home or self-care (01) ==
LOC: ORWHC2ENDO 09:13
PROVIDERS: ATTEND Surgery
DX: Z86.010 Personal history of colon polyps (principal); K56.609 Unspecified intestinal obstruction, unspecified as to partial versus complete obstruction; Z87.891 Personal history of nicotine dependence; F32.A Depression, unspecified
CPT/HCPCS: 45378; J2250; J2704; J2001